=== PATIENT | male | born 1985 | race Two or more races ===

== ENCOUNTER 2021-01-11 05:30 | Day surgery (SDC) | payer OTHER ==
[~2021-01-11 05:30] MED LIST: ALL PO; FLONASE16 GM IH; INTEGRA PO; MIRAL PO
[2021-01-11] MEDS ORDERED: PERCOCET 5-3251 EACH PO (09:13)
[2021-01-11] MEDS ORDERED: COLACE100 MG PO (09:25)
== END 2021-01-11 16:30 | disposition home or self-care (01) ==
LOC: CIR.AMB 05:30
PROVIDERS: ATTEND Surgery
DX: K64.8 Other hemorrhoids (principal); Z20.822 Contact with and (suspected) exposure to COVID-19

== ENCOUNTER 2021-02-05 08:00 | Outpatient (CLI) | payer OTHER ==
[~2021-02-05 08:00] MED LIST changes: +COLACE100 MG PO; +PERCOCET 5-3251 EACH PO
== END 2021-02-05 08:30 | disposition home or self-care (01) ==
LOC: PPH VACUNA 08:00
PROVIDERS: ATTEND Emergency Medicine Pediatric Emergency Medicine
DX: Z23 Encounter for immunization (principal)

== ENCOUNTER 2022-08-28 12:06 | Outpatient (CLI) | payer OTHER | END 2022-08-28 12:12 | disposition home or self-care (01) | LOC: NUCLEAR 12:06 | PROVIDERS: ATTEND Family Medicine | DX: I82.402 Acute embolism and thrombosis of unspecified deep veins of left lower extremity (principal) ==